=== PATIENT | female | born 1990 | race Caucasian/White ===

== ENCOUNTER 2023-12-11 12:08 | Day surgery (SDC) | payer OTHER, SELFPAY ==
--- NOTE | 2023-12-11 12:19 | US_ITS ---
[address] [address] Patient Name: SPENCER WINTER MRN: [id number] date: 1990 Sex: F Assigned Patient Location: US Current Patient Location: US Accession/Order Number: [id number] Exam Date: 12/11/2023 12:25 Report Date: 12/11/2023 13:26 At the request of: OBIE TOM Procedure: US biopsy thyroid EXAMINATION: US biopsy thyroid, US biopsy FNA add lesion HISTORY: thyroid nodule COMPARISON: No relevant comparison available. TECHNIQUE: After obtaining informed consent, an ultrasound-guided biopsy was performed in the usual sterile manner. FINDINGS: Nodule 1: IMAGING: Ultrasound BIOPSY NEEDLE: 25-gauge 2 inch SPECIMEN TYPE, #, LOCATION: 3 fine-needle aspirates, 1.2 cm left mid thyroid hypoechogenic nodule MEDICATION: 2 cc 1% buffered lidocaine COMPLICATIONS: None. LABORATORY: OTHER: Negative. Nodule 2: IMAGING: Ultrasound BIOPSY NEEDLE: 25-gauge 2 inch SPECIMEN TYPE, #, LOCATION: 3 fine-needle aspirates, 1.8 cm cm left lower thyroid isoechoic echogenic nodule MEDICATION: 2 cc 1% buffered lidocaine COMPLICATIONS: None. LABORATORY: OTHER: Negative. US/US biopsy thyroid IMPRESSION: Uneventful ultrasound guided biopsy of 2 separate left thyroid nodules. The patient was instructed to obtain follow up care and biopsy results from the referring physician. Electronically authenticated by: DOLORES CEDENO Date: 12/11/2023 13:26
--- NOTE | 2023-12-11 12:21 | US_ITS ---
[address] [address] Patient Name: SPENCER WINTER MRN: [id number] date: 1990 Sex: F Assigned Patient Location: US Current Patient Location: US Accession/Order Number: [id number] Exam Date: 12/11/2023 12:25 Report Date: 12/11/2023 13:26 At the request of: OBIE TOM Procedure: US biopsy FNA add lesion EXAMINATION: US biopsy thyroid, US biopsy FNA add lesion HISTORY: thyroid nodule COMPARISON: No relevant comparison available. TECHNIQUE: After obtaining informed consent, an ultrasound-guided biopsy was performed in the usual sterile manner. FINDINGS: Nodule 1: IMAGING: Ultrasound BIOPSY NEEDLE: 25-gauge 2 inch SPECIMEN TYPE, #, LOCATION: 3 fine-needle aspirates, 1.2 cm left mid thyroid hypoechogenic nodule MEDICATION: 2 cc 1% buffered lidocaine COMPLICATIONS: None. LABORATORY: OTHER: Negative. Nodule 2: IMAGING: Ultrasound BIOPSY NEEDLE: 25-gauge 2 inch SPECIMEN TYPE, #, LOCATION: 3 fine-needle aspirates, 1.8 cm cm left lower thyroid isoechoic echogenic nodule MEDICATION: 2 cc 1% buffered lidocaine COMPLICATIONS: None. LABORATORY: OTHER: Negative. US/US biopsy FNA add lesion IMPRESSION: Uneventful ultrasound guided biopsy of 2 separate left thyroid nodules. The patient was instructed to obtain follow up care and biopsy results from the referring physician. Electronically authenticated by: DOLORES CEDENO Date: 12/11/2023 13:26
[2023-12-11 12:30] VITALS: BP 141/106; PULSE 106; O2SAT 99
[2023-12-11] MEDS: LIDOCAINE HCL 10 ML, SODIUM BICARBONATE 1 MEQ INJ (13:10)
--- NOTE | 2023-12-11 14:53 | SUR.PREOP ---
12/04/23 Pt instructed on procedure, date, time, and prep.
== END 2023-12-11 13:20 | disposition home or self-care (01) ==
LOC: US 12:12
PROVIDERS: Radiology Diagnostic Radiology; PCP Family Medicine; Visit Provider Otolaryngology
DX: E04.2 Nontoxic multinodular goiter (principal)
CPT/HCPCS: 10005; 10006; 99999